=== PATIENT | male | born 1955 | race Caucasian/White ===

== ENCOUNTER 2018-06-06 17:40 | Observation (INO) | payer BC ==
--- NOTE | 2018-06-06 17:37 | EDPHY ---
H & P Time Seen by Provider: 06/06/18 17:41 Constitutional: Initial Vital Signs Temperature (C) 36.8 C 06/06/18 17:45 Heart Rate 75 06/06/18 17:45 Respiratory Rate 16 06/06/18 17:45 Blood Pressure 156/86 H 06/06/18 17:45 O2 Sat (%) 97 06/06/18 17:45 O2 Delivery Mode Room Air Allergies/Adverse Reactions: aspirin Allergy (Verified 06/06/18 17:49) Penicillins Allergy (Verified 06/06/18 17:49) Home Medications: Medication Instructions Recorded Liz Allergy 06/06/18 Cefuroxime 06/06/18 Finasteride 06/06/18 Lisinopril 06/06/18 Montelukast Sodium 06/06/18 Pantoprazole Sodium 06/06/18 Medical Decision Making - Diagnostics Imaging: Discussed imaging studies w/ complaint evaluation supervisor Radiologist, I viewed and interpreted images myself - Diagnostics Imaging Results: Imaging Impressions Head CT 06/06/18 17:46 Impression: Acute right temporal subarachnoid hemorrhage extending into the right sylvian fissure, with no skull fracture or evidence of subfalcine herniation. If there is further clinical concern regarding the patient's symptoms, MR imaging is suggested, if not otherwise contraindicated. Findings were discussed with Declan Hawkins MD at 18:08, on 06/06/2018. Elbow X-Ray 06/06/18 18:15 Impression: 1. Dorsal abrasion with a debris over the soft tissues, and no acute osseous abnormality identified. 2. Age-indeterminate avulsion fragment off the lateral humeral epicondyle. Procedures: Procedure: Laceration repair. Verbal consent was obtained from the patient. The 5 cm, horizontal, simple laceration on the left occipital scalp was anesthetized in the usual fashion using 6 mL of 1% lidocaine with epinephrine. The wound was irrigated, draped and explored to its base with a gloved finger. There were no deep structures involved. No tendon injury was identified. The wound was repaired with #6 suzette. Good hemostasis was achieved and patient tolerated procedure well. The procedure was performed by myself. Procedure: Laceration repair. Verbal consent was obtained from the patient. The 1.5 cm, simple, superficial laceration on the left elbow was anesthetized in the usual fashion using 3 mL of 1% lidocaine with epinephrine The wound was irrigated, draped and explored to its base with a gloved finger. There were no deep structures involved. No tendon injury was identified. The wound was repaired with #2, 4 0 Prolene in simple interrupted pattern. Good hemostasis was achieved and patient tolerated procedure well. Clean sterile dressing applied. The procedure was performed by myself. (Monica Huerta) ED Course/Re-evaluation: CHIEF COMPLAINT: Head injury, LTA HISTORY OF PRESENT ILLNESS: The patient is a 62 y/o male arriving via EMS as a limited trauma activation for a head injury today. The patient was on a side walk, when a door opened and knocked the patient into a parking barrier, where he hit his head. The patient cannot remember the events after hitting his head. He is unsure if his taking anticoagulants or a beta-bethanie. Due to his unknown anticoagulation, a LTA was called by EMS. No fever, body aches, lightheadedness, chest pain, heart palpitations, shortness of breath, cough, abdominal pain, urinary or bowel complaints, numbness, paresthesias. REVIEW OF SYSTEMS: A comprehensive 10 system review of systems is otherwise negative aside from elements mentioned in the history of present illness and medical decision making. PHYSICAL EXAM: General Appearance: Alert, no distress, talking appropriately, comfortable. Head: 5cm linear, deep laceration to left restorationism parietal. No scalp tenderness. Eyes: Pupils equal, round, reactive to light and accommodation, EOMI, no trauma , no injection. Ears: Clear bilaterally, no perforation, no hemotympanum Nose: Atraumatic, no rhinorrhea, no septal hematoma Neck: The cervical spine is nontender and there is no pain or neurologic deficits with active range of motion. Supple, 2+ carotid upstroke bilaterally without bruit, no trauma, trachea midline. Cardiovascular: Heart is regular rate and rhythm without murmur. Bilateral carotid, radial, dorsalis pedis pulses intact. Good capillary refill all extremities. Chest: Atraumatic, equal bilateral breath sounds. Good oxygen saturations with normal minute ventilation. Chest is nontender to palpation. Gastrointestinal: Soft, nontender, non-distended. No rebound, guarding, or peritoneal signs. There is no evidence of external or internal trauma. Back: Spinal precautions were maintained as the patient was log-rolled with cervical control. There is no thoracic or lumbar spine or paraspinal tenderness. Extremities: All extremities are nontender to palpation without obvious deformity. There is full active range of motion of the joints. Neurological: Patient has retrograde amnesia. The patient has normal DTRs and non-focal Cranial nerves, motor, sensory, and cerebellar exam Skin: Right elbow puncture laceration. No lacerations, watt. Past medical history: Unknown Past surgical history: Unknown Family history: Unknown Social history: , employed, lives in [place] DIAGNOSTICS/PROCEDURES/CRITICAL CARE TIME: Head CT: Traumatic right-sided subarachnoid bleeding without shift. Left zygoma fracture. DIFFERENTIAL DIAGNOSIS: The differential diagnosis for the patient's trauma included but was not limited to intracranial injury, long bone and pelvic bone fractures, spinal injury, intra-abdominal injury, and intra-thoracic injury. MEDICAL DECISION MAKING: he patient is a 62 y/o male arriving via EMS as a limited trauma activation for a head injury today. The patient was on a side walk, when a door opened and knocked the patient into a parking barrier, where he hit his head. Due to his unknown anticoagulation, a LTA was called by EMS. I downgraded this patient as he does not meet criteria for a LTA. He does have retrograde amnesia; head CT ordered per [place] Head CT criteria. Patient's abrasions will be cleaned by the tech. Monica Huerta PAC will staple the patient's scalp laceration. 1810: I spoke with Dr. Pena, radiologist, regarding patient's head CT. Patient has a traumatic subarachnoid bleeding without shift. I will page neurosurgery and trauma surgery. 1812: I consulted with Dr. Bertrand, neurosurgeon, regarding this patient. He will come into the emergency department to assess the patient. 1816: I consulted with Dr. Trinidad, trauma surgeon, regarding this patient. He agrees that this patient can be downgraded. Hospitalist paged. 1820: I consulted with the hospitalist service, Dr. Davila accepts admission of this patient. 1838: I consulted with Dr. Trinidad, he will admit this patient for trauma. (Declan Hawkins) Departure - Departure Disposition: [facility] Acute Clinical Impression: Subarachnoid hemorrhage Head injury Qualifiers: Encounter type: initial encounter Qualified Code(s): S09.90XA - Unspecified injury of head, initial encounter Scalp laceration Qualifiers: Encounter type: initial encounter Qualified Code(s): S01.01XA - Laceration without foreign body of scalp, initial encounter Elbow abrasion Qualifiers: Encounter type: initial encounter Laterality: left Qualified Code(s): S50.312A - Abrasion of left elbow, initial encounter Fracture of left zygomatic arch Qualifiers: Encounter type: initial encounter Fracture type: closed Qualified Code(s): S02.40FA - Zygomatic fracture, left side, initial encounter for closed fracture Laceration of left elbow without complication Qualifiers: Encounter type: initial encounter Qualified Code(s): S51.012A - Laceration without foreign body of left elbow, initial encounter Condition: Serious Report Scribed for: Declan Hawkins Report Scribed by: Estelita Contreras Date of Report: 06/06/18 Time of Report: 17:41
[2018-06-06] MEDS ORDERED: ONDANSETRON 4 MG/2 ML VIAL IVP PRN ×2 (18:30→18:52)
[2018-06-06] MEDS ORDERED: ONDANSETRON DISINTEGRATING 4 MG TAB PO PRN (18:30)
[2018-06-06] MEDS ORDERED: ACETAMINOPHEN 325 MG TAB PO PRN (18:30)
--- NOTE | 2018-06-06 19:55 | GHP ---
[f rep st] PREOP HISTORY AND PHYSICAL DATE OF ADMISSION: 06/06/2018 REASON FOR EVALUATION: Subarachnoid hemorrhage status, post fall. HISTORY OF PRESENT ILLNESS: 62-year-old healthy male sustained a fall after inadvertently getting st ruck by a fire door walking down the sidewalk. The door had been forcefully opened, knocking the pat ient down a small embankment. He was found sitting on a curb when EMS arrived. The patient is amnes tic to the events after the injury. At present time, he is with complaints of left facial pain with opening and closing his jaw, as well as headache and left elbow discomfort. He denies chest pains or shortness of breath. He denies neck pain. He denies abdominal complaints. He denies lower extremi ty complaints. He denies right arm complaints. The patient is perseverating frequently throughout o ur discussion. PAST MEDICAL HISTORY: Bladder cancer, hypertension. PAST SURGICAL HISTORY: TURBT. MEDICATIONS: Protonix, Singulair, lisinopril, finasteride, Zyrtec, cefuroxime. ADVERSE DRUG REACTION: Aspirin (GI upset). The patient reports to a pediatric penicillin reaction, which he is uncertain of. SOCIAL HISTORY: Patient admits to moderate drinking. No tobacco. He is . 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 PHYSICAL EXAMINATION: GENERAL: The patient is alert, appropriate, despite the exception of persever ation, in no distress. VITAL SIGNS: Temperature 36.9, blood pressure 150/90, pulse 72, respirations 16. HEENT: Stapled 4 cm left parietal scalp laceration without associated hematoma. Remaining sca lp atraumatic. Notable left zygomatic arch tenderness without step-off or deformity. Pupils are equ ally round and reactive to light and accommodation. Extraocular muscles are intact. Tympanic membra moose are clear bilaterally with dried blood in his left external canal. Remaining face nontender. No malocclusion. No mid face instability or step-offs. Tongue midline. Posterior cervical spine nont michael. HEART: Regular without murmurs. LUNGS: Clear bilaterally. ABDOMEN: Soft, nontender, nond istended. EXTREMITIES: Pelvis nontender. Normal right upper extremity. Normal bilateral lower ext remities. Left elbow with a superficial abrasion measuring approximately 2 cm on the medial aspect. The outer aspect with a 1 cm puncture wound without active bleeding. Normal elbow range of motion. THORACIC AND LUMBAR SPINE: Nontender. LABORATORY: No laboratory reports available. IMAGING: CT head: Small right temporal lobe subarachnoid blood. Contrecoup to the patient's left-s ided laceration. Left zygomatic arch, nondisplaced fracture. IMPRESSION: 1. 62-year-old male status post fall, resultant from blunt fire door trauma. 2. Right temporal lobe subarachnoid hemorrhage. 3. Scalp laceration; primarily stapled in the emergency room. 4. Nondisplaced left zygomatic arch fracture. 5. Left elbow abrasion without clinical evidence of acute fracture. PLAN: 1. Patient will be admitted for overnight observation given his subarachnoid blood and persistent pe rseveration. Dr. Bertrand from Neurosurgery has been consulted. Further imaging to be determined per his discretion. 2. Cervical spine has been clinically cleared. 3. Scalp laceration has been primarily repaired as has his elbow puncture site. 4. Nonoperative management appropriate for the patient's zygomatic arch fracture. No further consul tation requested to this end. 5. Care plan was discussed in detail with the patient and at bedside as well as with the ED doc tor on-call. /[id number]/MODL
--- NOTE | 2018-06-06 21:45 | GCON ---
[f rep st] CONSULTATION DATE OF CONSULTATION: 06/06/2018 CONSULTING SERVICE: Dr. Hawkins, Emergency medicine, and Dr. Trinidad of Trauma surgery. ENGLISH LANGUAGE LEARNER TEACHER: Neurosurgery, Dr. Bertrand. REASON FOR CONSULT: Mechanical fall with small amount of traumatic subarachnoid hemorrhage. HISTORY OF PRESENT ILLNESS: The patient is a 62-year-old healthy male who suffered a mechanical fall this afternoon after inadvertently being struck by a fire door when walking on the sidewalk. He is not anticoagulated. I was called about this patient by Dr. Hawkins at 6:12 p.m. this evening and I s aw the patient at 8:05 in his room on the floor. He is not complaining of headaches, nausea, or any neurological symptoms. He is not on anticoagulants. He does forget some of the events after the inj ury. Currently, his only complaint is some left-sided facial pain, worse with opening of mouth. Hea d CT revealed a small amount of traumatic right sylvian fissure traumatic subarachnoid hemorrhage. PAST MEDICAL HISTORY/SURGICAL HISTORY: Per HPI, bladder cancer, hypertension, TURBT. ALLERGIES: Penicillin while a pediatric patient, but does not remember the events surrounding this. SOCIAL HISTORY: Moderate alcohol use. No tobacco. Denies illicits. . 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 FAMILY HISTORY: Reviewed but noncontributory given the traumatic presentation. REVIEW OF SYSTEMS: Ten points reviewed and negative other than stated in HPI. PHYSICAL EXAM: VITALS: Afebrile 36.9, blood pressure 150/90, heart rate 72, respirations 16, satura ting greater than 98% on room air. NEUROLOGIC: Awake, alert, oriented x3. Appears stated age. No acute distress. Normal fluent speech. Normal cranial nerves. 5/5 strength and no pronator drift. No abnormal sensation or reflex findings. No cerebellar findings. LABORATORY: None to review. IMAGING: I reviewed the patient's CT of the head and view the small amount of right temporal region subarachnoid hemorrhage in the sylvian fissure. No mass effect or large shift or edema. There is a left zygomatic arch nondisplaced fracture. IMPRESSION AND PLAN: The patient is a 62-year-old male status post mechanical fall, who is currently asymptomatic other than for left-sided facial pain, likely related to a nondisplaced zygomatic arch fracture. He has a small amount of right-sided temporal and sylvian fissure traumatic subarachnoid b lood that is not concerning radiographically. His exam is also reassuring. He is doing quite well. Again, I saw the patient in under 2 hours after being consulted by Emergency medicine and Trauma esdras rader. We will see him again in the morning to hopefully clear him for discharge home unless there ar e other issues that Trauma surgery is concerned about, although after review of the chart, I did not see any prohibitive injuries. Please call me with any questions. I am following closely along. No more scans are needed unless patient changes neurologically; q.4 hours neuro checks are okay. I do n ot think that Keppra is required, although if it is decided should only be given for 1 week. /[id number]/MODL
[2018-06-06] MEDS: CEFUROXIME AXETIL 250 MG TAB PO SCH (21:56)
[2018-06-06] MEDS: BACITRACIN ZINC 0.5 OZ OINTTUBE TP SCH (21:57)
[2018-06-06] MEDS: LISINOPRIL 20 MG TAB PO SCH (21:59)
[2018-06-07 07:10] VITALS: BP 130/58
[2018-06-07] MEDS: CEFUROXIME AXETIL 250 MG TAB PO SCH (07:19)
[2018-06-07] MEDS: BACITRACIN ZINC 0.5 OZ OINTTUBE TP SCH (07:22)
[2018-06-07] MEDS: LISINOPRIL 20 MG TAB PO SCH (07:31)
--- NOTE | 2018-06-07 07:50 | SOAPPROG ---
SOAP Progress Note Assessment/Plan: Assessment: 62 yo M with small right sylvian fissure tSAH after fall Plan: neuro: stable and doing well overal headaches improved with no N/V ok to discharge when cleared by Trauma patient can follow up with PCP in [place] or see Dr Bertrand if he feels worse no more scans needed unless mentation changes please call with neuro changes discussed with Dr Bertrand 06/07/18 07:48 Subjective: mild headache, no N/V. No weakness. Objective: Vital Signs Temp Pulse Resp BP Pulse Ox 36.9 C 58 L 16 130/58 H 94 06/07/18 07:08 06/07/18 07:08 06/07/18 07:08 06/07/18 07:08 06/07/18 07:08 06/06/18 06/07/18 06/08/18 05:59 05:59 05:59 Intake Total 700 Balance 700 AAOX4, +FC PERRL, EOMI, no facial droop 5/5 + light touch ICD10 Worksheet Patient Problems: Problems Problem Status Onset Elbow abrasion Acute Fracture of left zygomatic arch Acute Head injury Acute Laceration of left elbow without complication Acute Scalp laceration Acute Subarachnoid hemorrhage Acute
[2018-06-07] MEDS ORDERED: CETIRIZINE 10 MG TAB PO SCH (09:00)
[2018-06-07] MEDS ORDERED: PANTOPRAZOLE SODIUM 40 MG TAB PO SCH (09:00)
[2018-06-07] MEDS ORDERED: FINASTERIDE 5 MG TAB PO SCH (09:00)
--- NOTE | 2018-06-07 12:33 | ASMTLACE ---
LACE Length of stay for Answers: 2 days current admission Acuity / Level of Answers: No Care: Did the patient have an inpatient admission? Comorbidities - select Answers: Other Notes: HTN, bladder CA all that apply # of Emergency department Answers: 0 visits in the last 6 months Score: 3 Date Signed: 06/07/2018 12:33 PM Electronically Signed By:ARACELY Campos
--- NOTE | 2018-06-07 12:35 | ASMTCMCOM ---
CM Note CM Note Notes: Neurosurgery clears pt, pt to follow up with PCP. Pt medically stable for d/c with . No Cm d/c needs identified. OT/PT rec home, SHEEP RANCHER will follow-up call. Date Signed: 06/07/2018 12:34 PM Electronically Signed By:ARACELY Campos
--- NOTE | 2018-06-07 14:44 | PDDCSUM ---
Discharge Summary Discharge Summary: Date of admission: 06/06/2018 Date of discharge: 06/07/2018 Principal diagnosis right temporal contrecoup subarachnoid hemorrhage traumatic Laceration left scalp Left zygomatic arch fracture nondisplaced Elbow abrasion Consultations Dr. Bertrand History of present illness: The patient struck by a fire door and rolled down an embankment he struck the left side of his head and had a concussion. He was brought to the hospital as a limited activated trauma. The patient had appropriate scans performed. The patient's injuries did not require further imaging per Neurosurgery. His headache had begun to resolve. Tertiary exam was negative today for additional injuries. He is being discharged to home with Tylenol for headache he is to find outpatient ENT consultation for his zygomatic arch fracture. He will follow up with Dr. Dowd or were of neurosurgery in [place]. All questions were addressed. He was requested not to engage in any activity that would cause further head injuries along with his head sheet. [place] from his head can be removed after June 16
[2018-06-07] MEDS ORDERED: MONTELUKAST SODIUM 10 MG TAB PO PRN (18:00)
== END 2018-06-07 11:39 | disposition home or self-care (01) ==
LOC: EDUNIT# → F3N 20:05
PROVIDERS: ADMIT Internal Medicine; ATTEND Surgery
PROC: 0HQEXZZ Repair Left Lower Arm Skin, External Approach (ICD-10-PCS; principal; 2018-06-06)
PROC: 0HQ0XZZ Repair Scalp Skin, External Approach (ICD-10-PCS; principal; 2018-06-06)
DX: S06.6X9A Traumatic subarachnoid hemorrhage with loss of consciousness of unspecified duration, initial encounter (principal); S01.01XA Laceration without foreign body of scalp, initial encounter; S02.40FA Zygomatic fracture, left side, initial encounter for closed fracture; S51.012A Laceration without foreign body of left elbow, initial encounter; R40.2140 Coma scale, eyes open, spontaneous, unspecified time; R40.2240 Coma scale, best verbal response, confused conversation, unspecified time; R40.2360 Coma scale, best motor response, obeys commands, unspecified time; I10 Essential (primary) hypertension; C67.9 Malignant neoplasm of bladder, unspecified; W20.8XXA Other cause of strike by thrown, projected or falling object, initial encounter
CPT/HCPCS: 12002; 70450; 73080; 92523; 97161; 97165; G0378